=== PATIENT | female | born 1980 | race Caucasian/White ===

== ENCOUNTER 2020-11-30 13:42 | Emergency (ER) | payer BC ==
[2020-11-30] MEDS ORDERED: diphenhydrAMINE 50 MG/ML VIAL ONE (14:53)
[2020-11-30] MEDS ORDERED: Metoclopramide HCl 10 MG/2 ML VIAL ONE (14:53)
[2020-11-30] MEDS ORDERED: Magnesium 2 GM/50 ML BAG (IN WATER) ONE (14:53)
[2020-11-30] MEDS ORDERED: Ketorolac Tromethamine 30 MG/ML VIAL ONE (14:53)
== END 2020-11-30 15:55 | disposition home or self-care (01) ==
LOC: BURERS 13:42
DX: G43.909 Migraine, unspecified, not intractable, without status migrainosus (principal); I10 Essential (primary) hypertension; Z79.899 Other long term (current) drug therapy
CPT/HCPCS: 70450; 96365; 96375; J1200; J1885; J2765; J3475